=== PATIENT | male | born 2000 | race American Indian/Alaskan Native ===

== ENCOUNTER 2020-10-29 13:25 | Emergency (ER) | payer SELFPAY ==
[2020-10-29 15:02] VITALS: BP 165/119
--- NOTE | 2020-10-29 15:50 | XRay Report ---
CHEST 2 VIEWS INDICATION: cough. COMPARISON: None FINDINGS: Support devices: None. Heart: Within normal limits. Lungs/pleura: No acute air space or interstitial disease. No pneumothorax. Additional findings: None. IMPRESSION: Normal chest x-ray Signer Name: Kirill Ross Jr, MD Signed: 10/29/2020 3:45 PM Workstation Name: [id number]
--- NOTE | 2020-10-29 16:57 | Emergency Department Report ---
- General Chief Complaint: Dyspnea/Respdistress Stated Complaint: BODY HURTING FEVER Time Seen by Provider: 10/29/20 15:20 Source: patient Mode of arrival: Ambulatory Limitations: No Limitations - History of Present Illness Initial Comments: This is a 20-year-old male nontoxic, well nourished in appearance, no acute signs of distress presents to the ED with c/o of productive cough, subjective fever, chills, body aches, rhinorrhea, nasal congestion x several days. Patient describes productive cough as yellow mucus production. Patient denies any sick contact. Patient denies any recent travels, long car, recent hospital stays. Patient denies any calf pain or calf tenderness. Patient denies any chest pain, short of breath, nausea, vomiting, hemoptysis, numbness, tingling, headache or stiff neck. Patient denies any allergies or significant past medical history. MD Complaint: fever, cough, rhinorrhea, nasal congestion -: days(s) Severity: mild Severity scale (0 -10): 8 Quality: aching Consistency: constant Improves With: nothing Worsens With: nothing Associated Symptoms: fever, chills, rhinorrhea, nasal congestion, cough. denies: myalgias, diaphoresis, headache, sore throat, stiff neck, chest pain, shortness of breath, abdominal pain, nausea, vomiting, diarrhea, dysuria, rash, confusion, right sweats, weight loss, epistaxis, hoarseness, ear pain Treatments Prior to Arrival: none - Related Data Previous Rx's Medication Instructions Recorded Last Taken Type Benzonatate [Tessalon Perles] 100 mg PO Q8HR PRN #12 capsule 10/29/20 Unknown Rx Allergies Allergy/AdvReac Type Severity Reaction Status Date / Time No Known Allergies Allergy Unverified 10/29/20 14:59 ED Review of Systems ROS: Stated complaint: BODY HURTING FEVER Other details as noted in HPI Comment: All other systems reviewed and negative Constitutional: chills, fever Eyes: denies: eye pain, eye discharge, vision change ENT: congestion. denies: ear pain, throat pain Respiratory: cough. denies: shortness of breath, wheezing Cardiovascular: denies: chest pain, palpitations Endocrine: no symptoms reported Gastrointestinal: denies: abdominal pain, nausea, diarrhea Genitourinary: denies: urgency, dysuria Musculoskeletal: denies: back pain, joint swelling, arthralgia Skin: denies: rash, lesions Neurological: denies: headache, weakness, paresthesias Psychiatric: denies: anxiety, depression Hematological/Lymphatic: denies: easy bleeding, easy bruising ED Past Medical Hx - Past Medical History Previous Medical History?: No - Surgical History Past Surgical History?: No - Medications Home Medications: Home Medications Medication Instructions Recorded Confirmed Last Taken Type Benzonatate [Tessalon Perles] 100 mg PO Q8HR PRN #12 capsule 10/29/20 Unknown Rx ED Physical Exam - General Limitations: No Limitations General appearance: alert, in no apparent distress - Head Head exam: Present: atraumatic, normocephalic - Eye Eye exam: Present: normal appearance - ENT ENT exam: Present: normal exam, normal orophraynx - Neck Neck exam: Present: normal inspection, full ROM. Absent: lymphadenopathy - Respiratory Respiratory exam: Present: normal lung sounds bilaterally. Absent: respiratory distress, wheezes, rales, rhonchi, stridor, chest wall tenderness, accessory muscle use, decreased breath sounds, prolonged expiratory - Cardiovascular Cardiovascular Exam: Present: regular rate, normal rhythm, normal heart sounds. Absent: bradycardia, tachycardia, irregular rhythm, systolic murmur, diastolic murmur, rubs, gallop - GI/Abdominal GI/Abdominal exam: Present: soft, normal bowel sounds. Absent: distended, tenderness, guarding, rebound, rigid, diminished bowel sounds - Extremities Exam Extremities exam: Present: normal inspection, full ROM - Back Exam Back exam: Present: normal inspection, full ROM. Absent: tenderness, CVA tenderness (R), CVA tenderness (L), muscle spasm, paraspinal tenderness, vertebral tenderness, rash noted - Neurological Exam Neurological exam: Present: alert, oriented X3, normal gait - Psychiatric Psychiatric exam: Present: normal affect, normal mood - Skin Skin exam: Present: warm, dry, intact, normal color. Absent: rash ED Course Vital Signs 10/29/20 15:01 Temperature 98.1 F Pulse Rate 75 Respiratory 20 Rate Blood Pressure 165/119 [Left] O2 Sat by Pulse 100 Oximetry - Reevaluation(s) Reevaluation #1: 10/29/20 16:58 Patient is speaking in full sentences with no signs of distress noted. ED Medical Decision Making - Medical Decision Making This is a 20-year-old male that presents with suspected Covid. Patient is stable and was examined by me. Chest x-ray has been obtained and dictated by radiologist with normal exam. Patient is notified of x-ray results with no questions noted. Patient does meet clinical concerns of COVID-19 and patient was instructed and educated on signs and symptoms and to self quarantine and seek medical attention as soon as possible if symptoms if symptoms worsen. Patient was instructed to increase hydration, rest and take Tylenol for fever episodes. Vitals stable. Patient is nonfebrile and normal heart rate. Patient was instructed Follow-up with a primary care doctor in 3-5 days or if symptoms worsen and continue return to emergency room as soon as possible. At time time of discharge, the patient does not seem toxic or ill in appearance. No acute signs of distress noted. Patient agrees to discharge treatment plan of care. No further questions noted by the patient. Critical care attestation.: If time is entered above; I have spent that time in minutes in the direct care of this critically ill patient, excluding procedure time. ED Disposition Clinical Impression: Suspected COVID-19 virus infection Disposition: TO HOME OR SELFCARE Is pt being admited?: No Does the pt Need Aspirin: No Condition: Stable Instructions: COVID-19 Frequently Asked Questions, COVID-19 Additional Instructions: Follow-up with a primary care doctor in 3-5 days or if symptoms worsen and continue return to emergency room as soon as possible. As educated and instructed to you must self quarantine yourself and people that you have been in close contact with similar symptoms for the next 14 days. Please see your nearest health department or primary care doctor that you are referred to for COVID testing. Increased rest, hydration, and take Tylenol as prescribed for fever episode. Prescriptions: Benzonatate [Tessalon Perles] 100 mg PO Q8HR PRN #12 capsule PRN Reason: Cough Referrals: BREONNA DUVAL MD [Primary Care Provider] - 3-5 Days ASHVIN RAMOS MD [Staff Physician] - 3-5 Days Time of Disposition: 17:01
== END 2020-10-29 17:01 | disposition left against medical advice (07) ==
LOC: ED 13:25
DX: R05 Cough (principal); R50.9 Fever, unspecified; M79.18 Myalgia, other site
CPT/HCPCS: 71046; 99283